=== PATIENT | male | born 1975 | race African-American/Black ===

== ENCOUNTER 2017-01-16 21:36 | Emergency (ER) | payer SELFPAY ==
[~2017-01-16] VITALS: Ht 167.6 cm; Wt 90.7 kg
[~2017-01-16 21:36] MED LIST: ATIVAN1 MG ORAL; CYCLOBENZAPRINE10 MG ORAL; GABAPENTIN300 MG ORAL; HYDROCHLOROTH12.5 M2 ORAL; IBUPROFEN600 MG ORAL; LIBRIUM25 MG ORAL; NKM; NORCO 5-325 TA1 EACH ORAL; SIMVASTATIN20 MG ORAL; SOMA350 MG PO; TOPIRAMATE25 M1 ORAL; TRAMADOL HCL50 MG ORAL
[2017-01-16 21:45] VITALS: BP 134/97
[2017-01-16] MEDS ORDERED: LIBRIUM10 MG ORAL (22:09)
[2017-01-16 22:40] VITALS: BP 134/97
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
== END 2017-01-16 22:40 | disposition home or self-care (01) ==
LOC: EMR 22:06
DX: F10.129 Alcohol abuse with intoxication, unspecified (principal); I10 Essential (primary) hypertension
CPT/HCPCS: 99283

== ENCOUNTER 2017-08-16 12:28 | Emergency (ER) | payer OTHER ==
[~2017-08-16] VITALS: Ht 162.6 cm; Wt 72.6 kg
[~2017-08-16 12:28] MED LIST changes: +LIBRIUM10 MG ORAL
[2017-08-16] MEDS ORDERED: ATENOLOL25 MG ORAL (12:38)
[2017-08-16 12:40] VITALS: BP 168/93
[2017-08-16] MEDS ORDERED: LORazepam Inj 2mg/ml 1ml IV ONE (13:00)
[2017-08-16] MEDS ORDERED: Morphine Sulfate 2mg/ml Inj IVP ONE (13:00)
[2017-08-16] MEDS ORDERED: Thiamine HCl 100 MG in D5W 55 ML IVPB SCH (13:00)
[2017-08-16 13:43] LABS: EOSINOPHILS % (AUTO) 0.3 % (0.0-3.0); HEMOGLOBIN 16.8 G/DL (14.2-18.0); LYMPHOCYTES % (AUTO) 31.3 % (20.0-45.0); MEAN CORPUSCULAR VOLUME 95 FL (80-99); MONOCYTES % (AUTO) 5.7 % (1.0-10.0); NEUTROPHILS % (AUTO) 61.6 % (45.0-75.0); PLATELET COUNT 216 K/UL (150-450); RED BLOOD COUNT 5.26 M/UL (4.70-6.10); WHITE BLOOD COUNT 10.4 K/UL (4.8-10.8)
[2017-08-16 13:58] LABS: ANION GAP 12 mmol/L (5-15); BLOOD UREA NITROGEN 18 mg/dL (7-18); CALCIUM 8.8 MG/DL (8.5-10.1); CARBON DIOXIDE 24 MMOL/L (21-32); CHLORIDE 101 MMOL/L (98-107); CREATININE 0.7 MG/DL (0.55-1.30); POTASSIUM 3.3 MMOL/L (3.5-5.1); SODIUM 137 MMOL/L (136-145)
[2017-08-16 14:01] LABS: ALANINE AMINOTRANSFERASE 57 U/L (12-78); ALBUMIN/GLOBULIN RATIO 1.2 (1.0-2.7); ALKALINE PHOSPHATASE 90 U/L (46-116); ASPARTATE AMINO TRANSFERASE 43 U/L (15-37); BILIRUBIN,TOTAL 0.6 MG/DL (0.2-1.0); CREATINE KINASE 417 U/L (26-308)
[2017-08-16 14:48] VITALS: BP 183/114
[2017-08-16 14:52] LABS: APPEARANCE,URINE SLIGHTLY CLOUDY; BILIRUBIN, URINE NEGATIVE (NEGATIVE); GLUCOSE, URINE (UA) NEGATIVE (NEGATIVE); KETONES,URINE 2+ (NEGATIVE); LEUKOCYTE ESTERASE ,URINE 1+ (NEGATIVE); NITRITE,URINE NEGATIVE (NEGATIVE); PH,URINE 5 (4.5-8.0); PROTEIN,URINE 2+ (NEGATIVE); UROBILINOGEN,URINE NORMAL MG/DL (0.0-1.0)
[2017-08-16 14:55] LABS: COLOR,URINE YELLOW
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
[2017-08-16] MEDS ORDERED: NORCO 5-325 TA1 EACH ORAL (15:44)
[2017-08-16] MEDS ORDERED: VISTARIL25 M1 PO (15:44)
[2017-08-16 15:46] VITALS: BP 183/125
[2017-08-17] MEDS ORDERED: TENORMIN50 MG ORAL (12:03)
[2017-08-17] MEDS ORDERED: LISINOPRIL10 MG ORAL (12:11)
--- NOTE | 2017-08-17 17:24 | Cardiology Report ---
APPROVED REPORT EKG Measurement Heart [id number] [id number] Sinus tachycardia Minimal voltage criteria for LVH, may be normal variant Nonspecific T wave abnormality Abnormal ECG
== END 2017-08-16 15:52 | disposition home or self-care (01) ==
LOC: EMR 12:55
DX: F10.230 Alcohol dependence with withdrawal, uncomplicated (principal); M54.5 Low back pain; M41.9 Scoliosis, unspecified; I10 Essential (primary) hypertension; F17.200 Nicotine dependence, unspecified, uncomplicated; G40.909 Epilepsy, unspecified, not intractable, without status epilepticus; R00.0 Tachycardia, unspecified
CPT/HCPCS: 36415; 80053; 80307; 80329; 81003; 82550; 84484; 85025; 93005; 96361; 96374; 96375; 99284; J2270; J2405; J8499

== ENCOUNTER 2017-08-17 07:37 | Emergency (ER) | payer OTHER ==
[~2017-08-17] VITALS: Ht 165.1 cm; Wt 88.5 kg
[~2017-08-17 07:37] MED LIST changes: +ATENOLOL25 MG ORAL; +VISTARIL25 M1 PO
[2017-08-17] MEDS ORDERED: Morphine Sulfate 4mg/ml Inj IVP ONE ×2 (08:00→10:30)
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
[2017-08-17 08:16] VITALS: BP 177/114
[2017-08-17 08:18] LABS: BASOPHILS % (AUTO) 0.8 % (0.0-2.0); EOSINOPHILS % (AUTO) 2.1 % (0.0-3.0); HEMATOCRIT 47.8 % (42.0-52.0); HEMOGLOBIN 16.6 G/DL (14.2-18.0); LYMPHOCYTES % (AUTO) 24.1 % (20.0-45.0); MEAN CORPUSCULAR VOLUME 94 FL (80-99); MONOCYTES % (AUTO) 5.5 % (1.0-10.0); NEUTROPHILS % (AUTO) 67.5 % (45.0-75.0); PLATELET COUNT 190 K/UL (150-450); RED BLOOD COUNT 5.11 M/UL (4.70-6.10)
[2017-08-17 08:27] LABS: ANION GAP 9 mmol/L (5-15); BLOOD UREA NITROGEN 16 mg/dL (7-18); CALCIUM 8.7 MG/DL (8.5-10.1); CARBON DIOXIDE 26 MMOL/L (21-32); CHLORIDE 101 MMOL/L (98-107); CREATININE 0.8 MG/DL (0.55-1.30); POTASSIUM 3.7 MMOL/L (3.5-5.1); SODIUM 135 MMOL/L (136-145)
[2017-08-17 08:38] LABS: ALANINE AMINOTRANSFERASE 51 U/L (12-78); ALBUMIN 3.8 G/DL (3.4-5.0); ALBUMIN/GLOBULIN RATIO 1.2 (1.0-2.7); ALKALINE PHOSPHATASE 93 U/L (46-116); ASPARTATE AMINO TRANSFERASE 33 U/L (15-37); BILIRUBIN,TOTAL 1.2 MG/DL (0.2-1.0); CREATINE KINASE 409 U/L (26-308)
[2017-08-17] MEDS ORDERED: Labetalol 5mg/ml 20ml vial IV ONE ×2 (08:45→10:30)
[2017-08-17 09:10] LABS: BILIRUBIN,DIRECT 0.2 MG/DL (0.0-0.3)
[2017-08-17 10:14] VITALS: BP 165/113
[2017-08-17] MEDS ORDERED: TENORMIN50 MG ORAL (12:03)
[2017-08-17] MEDS ORDERED: LISINOPRIL10 MG ORAL (12:11)
[2017-08-17] MEDS ORDERED: Lisinopril 10mg tab ORAL ONE (12:15)
[2017-08-17 12:24] VITALS: BP 180/107
[2017-08-17 12:30] VITALS: BP 180/107
== END 2017-08-17 12:30 | disposition home or self-care (01) ==
LOC: EMR 08:41
DX: I10 Essential (primary) hypertension (principal); F10.239 Alcohol dependence with withdrawal, unspecified; M54.5 Low back pain; R00.0 Tachycardia, unspecified; Z79.899 Other long term (current) drug therapy
CPT/HCPCS: 36415; 80053; 82248; 82550; 83880; 84484; 85025; 85610; 85730; 96361; 96374; 96375; 99284; J2270; J2405

== ENCOUNTER 2018-08-15 05:35 | Emergency (ER) | payer OTHER ==
[~2018-08-15] VITALS: Ht 167.6 cm; Wt 89.4 kg
[~2018-08-15 05:35] MED LIST changes: +LISINOPRIL10 MG ORAL; +TENORMIN50 MG ORAL
[2018-08-15 05:58] VITALS: BP 161/115
--- NOTE | 2018-08-15 06:00 | NUR ---
ED Nurse Note: Patient walked in from home, c/o lowerback pain. AAO x4, skin is dry intact, warm to touch. Patient has high BP 186/116. HR is 114. will continue to monitor.
[2018-08-15] MEDS ORDERED: chlordiazePOXIDE 25mg Cap ORAL ONE (06:15)
[2018-08-15] MEDS ORDERED: LORazepam Inj 2mg/ml 1ml IM ONE (06:15)
[2018-08-15] MEDS ORDERED: LIBRIUM25 MG ORAL (06:34)
[2018-08-15] MEDS ORDERED: NORVASC10 MG ORAL (06:34)
[2018-08-15] MEDS ORDERED: IBUPROFEN600 MG ORAL (06:34)
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
--- NOTE | 2018-08-15 06:35 | NUR ---
ED Nurse Note: patient's BP is 155/98
[2018-08-15 06:41] VITALS: BP 165/113
--- NOTE | 2018-08-15 06:43 | NUR ---
ED Nurse Note: Pt cleared by health care Provider for discharge. DC instructions/prescription was given and explained to pt and verbalized understanding of teachings. All medical deviecs such as ID band removed. Pt is AAO x4, ambulatory and left with all personal belongings.
== END 2018-08-15 06:59 | disposition home or self-care (01) ==
LOC: EMR 05:59
DX: M54.5 Low back pain (principal); F10.230 Alcohol dependence with withdrawal, uncomplicated; I10 Essential (primary) hypertension
CPT/HCPCS: 96372; 99283

== ENCOUNTER 2019-07-11 13:45 | Emergency (ER) | payer SELFPAY ==
[~2019-07-11] VITALS: Ht 167.6 cm; Wt 89.8 kg
[~2019-07-11 13:45] MED LIST changes: +NORVASC10 MG ORAL
[2019-07-11 14:00] VITALS: BP 142/94
--- NOTE | 2019-07-11 14:00 | NUR ---
ED Nurse Note: Pt ambulated to ED from home d/t chest pain radiating on his back since yesterday. Pt is AOx4, calm and cooperative. Placed on bed and hosp gown; hooked to drum attendant.
[2019-07-11 15:06] LABS: BASOPHILS % (AUTO) 0.9 % (0.0-2.0); EOSINOPHILS % (AUTO) 0.1 % (0.0-3.0); HEMATOCRIT 44.5 % (42.0-52.0); HEMOGLOBIN 15.7 G/DL (14.2-18.0); LYMPHOCYTES % (AUTO) 11.6 % (20.0-45.0); MEAN CORPUSCULAR VOLUME 94 FL (80-99); MONOCYTES % (AUTO) 6.3 % (1.0-10.0); NEUTROPHILS % (AUTO) 81.1 % (45.0-75.0); PLATELET COUNT 249 K/UL (150-450); RED BLOOD COUNT 4.75 M/UL (4.70-6.10); RED CELL DISTRIBUTION WIDTH 10.7 % (11.6-14.8); WHITE BLOOD COUNT 15.6 K/UL (4.8-10.8)
[2019-07-11 15:08] LABS: ANION GAP 21 mmol/L (5-15); BLOOD UREA NITROGEN 16 mg/dL (7-18); CALCIUM 9.3 MG/DL (8.5-10.1); CARBON DIOXIDE 18 MMOL/L (21-32); CHLORIDE 103 MMOL/L (98-107); CREATININE 0.7 MG/DL (0.55-1.30); POTASSIUM 3.3 MMOL/L (3.5-5.1); SODIUM 142 MMOL/L (136-145)
[2019-07-11 15:12] LABS: ALANINE AMINOTRANSFERASE 60 U/L (12-78); ALBUMIN 4.1 G/DL (3.4-5.0); ALBUMIN/GLOBULIN RATIO 1.2 (1.0-2.7); ALKALINE PHOSPHATASE 105 U/L (46-116); ASPARTATE AMINO TRANSFERASE 56 U/L (15-37); BILIRUBIN,TOTAL 0.6 MG/DL (0.2-1.0)
[2019-07-11] MEDS ORDERED: Omnipaque-300 100ml vial INJ PRN (15:15)
--- NOTE | 2019-07-11 17:01 | Diagnostic Imaging Report ---
INDICATION: Abdominal pain TECHNIQUE: Continuous helical transaxial imaging of the abdomen and pelvis was obtained from the lung bases to the pubic symphysis during intravenous contrast administration. Coronal 2-D reformats were also obtained. Study obtained in a Siemens sensation [address] Automatic Exposure Control was utilized. Total Dose length Product (DLP): 615.[address] Dose Index Volume (CTDIvol): 11.9 mGy COMPARISON: None FINDINGS: Lungs: The visualized lung bases are clear. Liver: The liver is hypodense consistent with fatty infiltration. Gallbladder/biliary system: No gallstones are identified. There is no evidence of intrahepatic or extrahepatic biliary ductal dilatation. Spleen: Unremarkable Pancreas: Unremarkable Kidneys/Bladder: There are few small cysts present bilaterally. There is no hydronephrosis or renal stones seen.. Adrenal glands: Unremarkable Aorta/IVC: Minimal mural calcium noted within the aorta and iliac arteries. Bowel: The appendix is not definite seen but there are no secondary signs of acute appendicitis. Bowel gas pattern appears nonobstructive. Peritoneum: There is no free fluid. Bones: There is a mild convexity of the thoracic spine to the right and mild leftward convexity lumbar spine. Consider mild scoliosis. IMPRESSION: Fatty liver. Incidental findings as above The CT scanner at [facility] is accredited by the [employer] and the scans are performed using dose optimization techniques as appropriate to a performed exam including Automatic Exposure control.
[2019-07-11] MEDS ORDERED: Ketorolac 30mg Inj IV ONE (17:15)
[2019-07-11] MEDS ORDERED: IBUPROFEN600 MG ORAL (17:22)
[2019-07-11] MEDS ORDERED: FAMOTIDINE20 MG ORAL (17:22)
[2019-07-11] MEDS ORDERED: LIDODERM700 M1 TOPIC (17:22)
[2019-07-11] MEDS ORDERED: CIPROFLOXACIN500 M2 ORAL (17:22)
[2019-07-11] MEDS ORDERED: ONDANSETRON ODT4 MG BC (17:22)
[2019-07-11 17:35] VITALS: BP 142/94
--- NOTE | 2019-07-11 17:35 | NUR ---
ER DISCHARGE NOTE: Patient is cleared to be discharged per ERMD, pt is aox4, on room air, with stable vital signs. pt was given dc and prescription instructions, pt was able to verbalize understanding, pt id band and iv site removed without complications. pt is able to ambulate with steady gait. pt took all belongings.
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
== END 2019-07-11 17:35 | disposition home or self-care (01) ==
LOC: EMR 14:45
DX: R19.7 Diarrhea, unspecified (principal); G89.29 Other chronic pain; M54.5 Low back pain; R11.0 Nausea; R53.1 Weakness; D72.829 Elevated white blood cell count, unspecified; R00.0 Tachycardia, unspecified; I10 Essential (primary) hypertension; M41.9 Scoliosis, unspecified; Z86.69 Personal history of other diseases of the nervous system and sense organs; K76.0 Fatty (change of) liver, not elsewhere classified
CPT/HCPCS: 36415; 74177; 80053; 83690; 84484; 85025; 93005; 96361; 96374; 99284; J1885; J7030; Q9967

== ENCOUNTER 2019-12-19 06:03 | Emergency (ER) | payer SELFPAY ==
[~2019-12-19] VITALS: Ht 167.6 cm; Wt 90.7 kg
[~2019-12-19 06:03] MED LIST changes: +CIPROFLOXACIN500 M2 ORAL; +FAMOTIDINE20 MG ORAL; +LIDODERM700 M1 TOPIC; +ONDANSETRON ODT4 MG BC
[2019-12-19 06:06] VITALS: BP 146/99
--- NOTE | 2019-12-19 06:06 | NUR ---
ED Nurse Note: Walk-in patient with complaints of left hip pain radiating to leg c 3 weeks. Patient states he could not stand it anymore so he came in. Will continue to monitor.
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
[2019-12-19] MEDS ORDERED: Ketorolac 30mg Inj IV ONE (06:30)
[2019-12-19] MEDS ORDERED: Methocarbamol 500mg tab ORAL ONE (06:30)
--- NOTE | 2019-12-19 06:35 | NUR ---
ED Nurse Note: Blood specimen collected, IV started at right Ac, 20G, patent with blood draw. Patient tolerated medication administration well. IV fluis N/S hung and running. Will continue to monitor.
--- NOTE | 2019-12-19 07:02 | NUR ---
ED Nurse Note: Report received from STEFAN Tyson. Pt A+OX4, lying comfortably in bed with no signs of distress. Respiraitons even and unlabored on room air. Hr elevated @ 117. All other vitals stable as documented.
[2019-12-19 07:09] LABS: ANION GAP 11 mmol/L (5-15); BLOOD UREA NITROGEN 17 mg/dL (7-18); CARBON DIOXIDE 26 MMOL/L (21-32); CHLORIDE 100 MMOL/L (98-107); CREATININE 0.9 MG/DL (0.55-1.30); POTASSIUM 3.4 MMOL/L (3.5-5.1); SODIUM 137 MMOL/L (136-145)
--- NOTE | 2019-12-19 07:11 | NUR ---
ED Nurse Note: pt en route to radiology
[2019-12-19 07:13] LABS: ALANINE AMINOTRANSFERASE 66 U/L (12-78); ALBUMIN 4.4 G/DL (3.4-5.0); ALBUMIN/GLOBULIN RATIO 1.2 (1.0-2.7); ALKALINE PHOSPHATASE 104 U/L (46-116); ASPARTATE AMINO TRANSFERASE 64 U/L (15-37); BILIRUBIN,TOTAL 0.4 MG/DL (0.2-1.0)
[2019-12-19 07:15] LABS: BASOPHILS % (AUTO) 1.4 % (0.0-2.0); EOSINOPHILS % (AUTO) 0.6 % (0.0-3.0); HEMATOCRIT 51.6 % (42.0-52.0); HEMOGLOBIN 17.2 G/DL (14.2-18.0); LYMPHOCYTES % (AUTO) 29.2 % (20.0-45.0); MEAN CORPUSCULAR VOLUME 99 FL (80-99); MONOCYTES % (AUTO) 8.3 % (1.0-10.0); NEUTROPHILS % (AUTO) 60.6 % (45.0-75.0); PLATELET COUNT 235 K/UL (150-450); RED CELL DISTRIBUTION WIDTH 11.4 % (11.6-14.8); WHITE BLOOD COUNT 8.4 K/UL (4.8-10.8)
--- NOTE | 2019-12-19 07:36 | NUR ---
ED Nurse Note: Pt back from CT. pain 10/16. HR @ 114 on the monitor.
[2019-12-19] MEDS ORDERED: LORazepam Inj 2mg/ml 1ml IV ONE (08:00)
[2019-12-19 08:01] VITALS: BP 151/94
--- NOTE | 2019-12-19 08:08 | NUR ---
ED Nurse Note: urine collected and sent to lab
[2019-12-19 08:29] LABS: APPEARANCE,URINE CLEAR; BILIRUBIN, URINE NEGATIVE (NEGATIVE); GLUCOSE, URINE (UA) NEGATIVE (NEGATIVE); KETONES,URINE 3+ (NEGATIVE); LEUKOCYTE ESTERASE ,URINE NEGATIVE (NEGATIVE); NITRITE,URINE NEGATIVE (NEGATIVE); PH,URINE 5 (4.5-8.0); PROTEIN,URINE 3+ (NEGATIVE); UROBILINOGEN,URINE NORMAL MG/DL (0.0-1.0)
[2019-12-19 08:34] LABS: COLOR,URINE YELLOW
--- NOTE | 2019-12-19 10:43 | Diagnostic Imaging Report ---
EXAM: CT CT L Spine no Contrast CLINICAL HISTORY: Back pain. TECHNIQUE: Axial images obtained through the lumbar spine with subsequent sagittal and coronal reformat images. All CT scans at this facility are performed using dose modulation techniques as appropriate to a performed exam including the following: automated exposure control with adjustment of the mA and/or kV according to patient size. RADIATION DOSE: CTDIvol: 18.20 mGy DLP: 752.1 mGy-cm Dose information generated by the CT scanner is available in PACS. COMPARISON: None FINDINGS: Alignment is anatomic. There is a mild levoscoliosis. Vertebral bodies are intact without compression deformity. There is no fracture, bony lesions or erosions. Mild degenerative disc space narrowing noted. Evaluation of disc disease by CT is limited but there is no significant central spinal canal stenosis demonstrated. Eccentric disc disease up to appear to contribute to moderate to severe neural foraminal stenoses at L3-4 and L4-5. There is no paraspinal soft tissue abnormality. IMPRESSION: MILD LEVOSCOLIOSIS. NO ACUTE BONY ABNORMALITY. ECCENTRIC DISC DISEASE AT L3-4 AND L4-5 WITH BILATERAL MODERATE TO SEVERE NEURAL FORAMINAL STENOSES.
[2019-12-19] MEDS ORDERED: Atenolol 25mg tab ORAL ONE (10:45)
[2019-12-19] MEDS ORDERED: Morphine Sulfate 4mg/ml Inj (IV USE ONLY) IVP ONE (11:15)
[2019-12-19] MEDS ORDERED: LIBRIUM10 MG ORAL (11:21)
[2019-12-19] MEDS ORDERED: TYLENOL325 MG ORAL (11:21)
[2019-12-19] MEDS ORDERED: ATENOLOL25 MG ORAL (11:21)
[2019-12-19] MEDS ORDERED: IBUPROFEN600 M1 ORAL (11:21)
[2019-12-19] MEDS ORDERED: ROBAXIN-500MG ORAL (11:21)
[2019-12-19 12:57] VITALS: BP 135/78
--- NOTE | 2019-12-19 12:57 | NUR ---
ED Nurse Note: Pt cleared by ERMD for discharge. DC instructions/prescription was given and explained to pt and verbalized understanding of teachings. All medical deviecs such as ID band and IV line removed. Pt is AAO x4, ambulatory and left with all personal belongings. Pt will take lyft going home.
== END 2019-12-19 13:00 | disposition home or self-care (01) ==
LOC: EMR 06:25
DX: M54.42 Lumbago with sciatica, left side (principal); F10.10 Alcohol abuse, uncomplicated; I10 Essential (primary) hypertension; R00.0 Tachycardia, unspecified; M41.9 Scoliosis, unspecified; F17.200 Nicotine dependence, unspecified, uncomplicated
CPT/HCPCS: 36415; 72131; 80053; 80307; 81001; 84484; 85025; 85379; 85610; 85651; 86140; 93005; 96361; 96374; 96375; 99284; G0480; J1885; J2270; J7030

== ENCOUNTER 2020-04-07 09:07 | Emergency (ER) | payer MEDICAID ==
[~2020-04-07] VITALS: Ht 167.6 cm; Wt 90.7 kg
[~2020-04-07 09:07] MED LIST changes: +IBUPROFEN600 M1 ORAL; +ROBAXIN-500MG ORAL; +TYLENOL325 MG ORAL
[2020-04-07 09:23] VITALS: BP 146/91
--- NOTE | 2020-04-07 09:31 | NUR ---
ED Nurse Note: Patient walked in to ER from home c/o left side lateral pain. Patient stated that he dislocatd his ribs when he was coughing yesterday. patient AAO x4, VSS at this time.
--- NOTE | 2020-04-07 09:43 | NUR ---
ED Nurse Note: X ray at bed side
[2020-04-07] MEDS ORDERED: IBUPROFEN600 M1 ORAL (09:57)
[2020-04-07 10:01] VITALS: BP 146/91
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
--- NOTE | 2020-04-07 13:54 | Diagnostic Imaging Report ---
Indication: Cough Technique: One view of the chest Comparison: none Findings: There is elevation of the left hemidiaphragm. The heart is enlarged. There is atelectasis at the left lung base and in the left perihilar region Impression: Left perihilar and basilar atelectasis Cardiomegaly
== END 2020-04-07 10:02 | disposition home or self-care (01) ==
LOC: EMR 09:22
DX: S20.212A Contusion of left front wall of thorax, initial encounter (principal); X58.XXXA Exposure to other specified factors, initial encounter; Y92.9 Unspecified place or not applicable; I10 Essential (primary) hypertension; M41.9 Scoliosis, unspecified
CPT/HCPCS: 71045; Z7502; 99283